=== PATIENT | male | born 1970 | race African-American/Black ===

== ENCOUNTER 2017-05-23 06:01 | Emergency (ER) | payer OTHER ==
[2017-05-23 06:22] VITALS: BMI 35.5
[2017-05-23] MEDS ORDERED: morphine CARPU-JECT 4 MG/1 ML DISP.SYRIN IVPUSH ONE (06:30)
[2017-05-23] MEDS ORDERED: morphine CARPU-JECT 2 MG/1 ML DISP.SYRIN IM ONE (06:33)
--- NOTE | 2017-05-23 06:34 | PDOC ---
History of Present Illness - General History Source: Patient Exam Limitations: No Limitations - History of Present Illness Initial Comments: 05/23/17 06:48 The patient is a 46 year old male, with significant past medical history of back surgery (2009) and diabetes, who presents to the emergency room complaining of 1 day of lower back pain. The patient states that the pain started yesterday when he awkwardly twisted to get in his car and heard a crack. The lower back pain is in the same area where he had a back surgery in 2009. It is 10/10 in severity and started to radiate to the medial aspect of the right thigh. He is ambulatory but states that the pain is making it very difficult to walk. Denies heavy lifting, recent trauma, or injuries. Denies fever, chills, nausea, vomiting. Allergies: none reported PCP: Dr. Reich <Geetha Quiles - Last Filed: 05/23/17 06:49> <Suma Bhagat - Last Filed: 05/23/17 06:52> - General Chief Complaint: Back Pain Stated Complaint: BACK PAIN Time Seen by Provider: 05/23/17 06:27 Past History <Geetha Quiles - Last Filed: 05/23/17 06:49> - Past Medical History Diabetes: Yes - Psycho/Social/Smoking Cessation Hx Anxiety: No Suicidal Ideation: No Smoking Status: Yes Smoking History: Never smoked Have you smoked in the past 12 months: No Number of Cigarettes Smoked Daily: 10 Information on smoking cessation initiated: No Hx Alcohol Use: No Drug/Substance Use Hx: No <Suma Bhagat - Last Filed: 05/23/17 06:52> - Past Medical History Allergies/Adverse Reactions: Allergies Allergy/AdvReac Type Severity Reaction Status Date / Time No Known Allergies Allergy Verified 05/23/17 06:14 Home Medications: Ambulatory Orders Metformin HCl [Glucophage -] 500 mg PO BID #60 tablet 01/20/16 Review of Systems - Review of Systems Able to Perform ROS?: Yes Comments:: 05/23/17 06:48 GENERAL/CONSTITUTIONAL: No fever or chills. No weakness. HEAD, EYES, EARS, NOSE AND THROAT: No change in vision. No ear pain or discharge. No sore throat. CARDIOVASCULAR: No chest pain or shortness of breath. RESPIRATORY: No cough, wheezing, or hemoptysis. GASTROINTESTINAL: No nausea, vomiting, diarrhea or constipation. GENITOURINARY: No dysuria, frequency, or change in urination. MUSCULOSKELETAL: +lower back pain x1 day that radiates to the medial aspect of the right thigh. No joint or muscle swelling or pain. No neck pain. SKIN: No rash NEUROLOGIC: No headache, vertigo, loss of consciousness, or change in strength/ sensation. ENDOCRINE: No increased thirst. No abnormal weight change. HEMATOLOGIC/LYMPHATIC: No anemia, easy bleeding, or history of blood clots. ALLERGIC/IMMUNOLOGIC: No hives or skin allergy. <Geetha Quiles - Last Filed: 05/23/17 06:49> *Physical Exam - Vital Signs Last Vital Signs Temp Pulse Resp BP Pulse Ox 98.3 F 86 20 173/89 100 05/23/17 06:14 05/23/17 06:14 05/23/17 06:14 05/23/17 06:14 05/23/17 06:14 - Physical Exam Comments: 05/23/17 06:48 GENERAL: Awake, alert, and fully oriented, in no acute distress HEAD: No signs of trauma EYES: PERRLA, EOMI, sclera anicteric, conjunctiva clear ENT: Auricles normal inspection, hearing grossly normal, nares patent, oropharynx clear without exudates. Moist mucosa NECK: Normal ROM, supple, no lymphadenopathy, JVD, or masses LUNGS: Breath sounds equal, clear to auscultation bilaterally. No wheezes, and no crackles HEART: Regular rate and rhythm, normal S1 and S2, no murmurs, rubs or gallops ABDOMEN: Soft, nontender, normoactive bowel sounds. No guarding, no rebound. No masses BACK: Muscle spasm around the right lateral T8 - T12. He also has midline tenderness of the lumbar spine. The patient is in too much pain to lay flat and do a full exam at this time. EXTREMITIES: Normal range of motion, no edema. No clubbing or cyanosis. No cords, erythema, or tenderness NEUROLOGICAL: Cranial nerves II through XII grossly intact. Normal speech, normal gait SKIN: Warm, Dry, normal turgor, no rashes or lesions noted. <Geetha Quiles - Last Filed: 05/23/17 06:49> - Vital Signs Last Vital Signs Temp Pulse Resp BP Pulse Ox 98.3 F 86 20 173/89 100 05/23/17 06:14 05/23/17 06:14 05/23/17 06:14 05/23/17 06:14 05/23/17 06:14 <Suma Bhagat - Last Filed: 05/23/17 06:52> ED Treatment Course - Medications Given in the ED: ED Medications Discontinued Medications Generic Name Dose Route Start Last Admin Trade Name Catalina PRN Reason Stop Dose Admin Morphine Sulfate 4 mg 05/23/17 06:30 05/23/17 06:43 Morphine Injection - IVPUSH 05/23/17 06:31 Not Given ONCE ONE Morphine Sulfate 4 mg 05/23/17 06:33 05/23/17 06:43 Morphine Injection - IM 05/23/17 06:34 4 mg ONCE ONE Administration <Geetha Quiles - Last Filed: 05/23/17 06:49> - RADIOLOGY Radiology Studies Ordered: Category Date Time Status LUMBAR SPINE CT W/O CONTRAST [CT] Stat CT Scan 05/23/17 06:30 Ordered <Suma Bhagat - Last Filed: 05/23/17 06:52> Medical Decision Making - Medical Decision Making 05/23/17 06:50 Pt comes with sudden onset lumbar pain radiating to his right medial thigh. Pt had lumbar surg 8 years ago. Yesterday he was getting into his car when he had the sudden pain. Pt will be given 4mg IM morphine and he will receive a CT scan of his lumbar spine. He will be signed out to the day ER doctor. <Suma Bhagat - Last Filed: 05/23/17 06:52> *DC/Admit/Observation/Transfer - Attestations Scribe Attestion: 05/23/17 06:48 Documentation prepared by YAHIR Dunlap, acting as director of medical education for Suma Bhagat MD/. <Geetha Quiles - Last Filed: 05/23/17 06:49> <Suma Bhagat - Last Filed: 05/23/17 06:52> - Referrals Referrals: Sami Reich MD [Primary Care Provider] -
[2017-05-23] MEDS ORDERED: METHOCARBAMOL 500 MG TABLET PO ONE (09:40)
--- NOTE | 2017-05-23 09:40 | PDOC ---
*Physical Exam - Vital Signs Last Vital Signs Temp Pulse Resp BP Pulse Ox 98.3 F 60 17 142/81 98 05/23/17 06:14 05/23/17 07:45 05/23/17 07:45 05/23/17 07:45 05/23/17 07:45 ED Treatment Course - Medications Given in the ED: ED Medications Discontinued Medications Generic Name Dose Route Start Last Admin Trade Name Catalina PRN Reason Stop Dose Admin Morphine Sulfate 4 mg 05/23/17 06:30 05/23/17 06:43 Morphine Injection - IVPUSH 05/23/17 06:31 Not Given ONCE ONE Morphine Sulfate 4 mg 05/23/17 06:33 05/23/17 06:43 Morphine Injection - IM 05/23/17 06:34 4 mg ONCE ONE Administration Medical Decision Making - Medical Decision Making 05/23/17 09:40 Patient reassessed. He was endorsed to me by Dr. Bhagat at shift change this morning. He presented with R low back pain after twisting his torso, feeling a cracking sensation. No neuro deficits on exam. He has history of back surgery in the past. He had a CT L-spine, no acute findings on review. He is still having pain, but it is worse with movement, which would suggest muscular pain. 05/23/17 12:10 Patient reassessed, he is continuing to have pain, although it is better than before. I will give percocet and motrin and reassess. 05/23/17 14:57 Patient states he continues to have pain. He is having difficulty ambulating. However, when I offered admission for further pain management and possibly MRI of his back, he initially agreed to stay, then stated later that he did not want to stay, would rather treat it at home. I counseled him that he can return at any time. 05/23/17 16:46 Inadvertently discharged without follow-up information. I contacted patient and gave him Dr. Guadarrama's information for f/u. *DC/Admit/Observation/Transfer Diagnosis at time of Disposition: Low back pain Qualifiers: Chronicity: acute Back pain laterality: right Sciatica presence: with sciatica Sciatica laterality: sciatica of right side Qualified Code(s): M54.41 - Lumbago with sciatica, right side - Discharge Dispostion Disposition: HOME Condition at time of disposition: Stable Admit: No - Prescriptions Prescriptions: Ibuprofen [Motrin -] 600 mg PO TID #21 tablet Oxycodone HCl/Acetaminophen [Percocet 5-325 mg Tablet] 1 - 2 tab PO Q6H PRN #20 tab MDD 8 tabs PRN Reason: Severe Pain Methocarbamol [Robaxin -] 1,000 mg PO BID PRN #20 tablet PRN Reason: Muscle Spasms - Referrals Referrals: Sami Reich MD [Primary Care Provider] - - Patient Instructions Printed Discharge Instructions: Low Back Pain - Post Discharge Activity Work/School Note: Back to Work
[2017-05-23] MEDS ORDERED: METHOCARBAMOL 500 MG TABLET ONE (09:42)
[2017-05-23] MEDS ORDERED: OXYCODONE/APAP 5/325MG COMBO TABLET PO ONE (12:10)
[2017-05-23] MEDS ORDERED: IBUPROFEN 600 MG TABLET (FP) PO ONE ×2 (12:10→12:20)
[2017-05-23] MEDS ORDERED: OXYCODONE/APAP 5/325MG COMBO TABLET ONE (12:20)
[2017-05-23 15:10] VITALS: BP 140/74; PULSE 71; TEMP 98.1
== END 2017-05-23 14:50 | disposition home or self-care (01) ==
LOC: JER 06:01
PROC: 3E0233Z Introduction of Anti-inflammatory into Muscle, Percutaneous Approach (ICD-10-PCS; principal; 2017-05-23)
DX: M54.41 Lumbago with sciatica, right side (principal); M62.830 Muscle spasm of back; E11.9 Type 2 diabetes mellitus without complications; Z79.84 Long term (current) use of oral hypoglycemic drugs
CPT/HCPCS: 72131-TC; 96372; 99283-25

== ENCOUNTER 2017-10-03 09:57 | Day surgery (SDC) | payer OTHER ==
[2017-09-30 10:19] VITALS: BMI 33.5
[~2017-10-03 09:57] MED LIST: GABAPENTIN 300 MG CAPSULE (FP) PO ONE; oxyCODONE HCL 10 MG SUSTAINED ACTING TABLET PO ONE
[2017-10-03] MEDS ORDERED: methylPREDNISolone ACET (DEPO) 40 MG/1 ML VIAL ONE (11:51)
[2017-10-03] MEDS ORDERED: BUPIVACAINE HCL/PF 2.5 MG/ML - 30 ML VIAL IJ ONE (11:51)
[2017-10-03] MEDS ORDERED: LIDOCAINE 1%/EPI 1:100000 (20 ML MULTI DOSE VIAL) ONE (11:51)
[2017-10-03] MEDS ORDERED: THROMBIN (BOVINE) 5,000 UNIT VIAL TP ONE (11:51)
[2017-10-03] MEDS ORDERED: DEXAMETHASONE SOD PHOSPHATE/PF 10 MG/ML SDV ONE (12:13)
[2017-10-03] MEDS ORDERED: MIDAZOLAM HCL 2 MG/2 ML SINGLE DOSE VIAL ONE (12:13)
[2017-10-03] MEDS ORDERED: BUPIVACAINE HCL/PF (5 MG/ML) 30 ML VIAL IJ ONE (12:13)
--- NOTE | 2017-10-03 12:21 | HP ---
History & Physical Update - History History: No Change - Physical Physical: No Change - Assessment Assessment: No Change - Plan Plan: No Change
[2017-10-03] MEDS ORDERED: ceFAZolin SODIUM 1 GM VIAL ONE (12:44)
[2017-10-03] MEDS ORDERED: LIDOCAINE 1%/EPI 1:100000 (50 ML MULTI DOSE VIAL) INF ONE (13:02)
[2017-10-03] MEDS ORDERED: ONDANSETRON 4 MG/2 ML VIAL ONE (13:51)
--- NOTE | 2017-10-03 14:41 | OP ---
Operative Note - Note: Operative Date: 10/03/17 Pre-Operative Diagnosis: lumbar stenosis L2-L4 with disc herniation Operation: lumbar laminectomy of L2-L4 with microdiscectomy Surgeon: Dillon Feliciano Van Cdl Driver: Nemo Perez Anesthesiologist/PLANT ENGINEERING MANAGER: Nakia Santizo Anesthesia: Spinal Specimens Removed: disc L2-L3 Estimated Blood Loss (mls): 30 Fluid Volume Replaced (mls): 500 Operative Report Dictated: Yes
--- NOTE | 2017-10-03 14:42 | SURG ---
Surgery Adult Remedial Education Instructor Note Adult Remedial Education Instructor: Nemo Perez PA-C Date of Service: 10/03/17 Diagnosis: spinal stenosis, disc herniation Procedure: laminectomy of L2-L4 with microdisectomy I was present for the entirety of the operative procedure. For further detail, please refer to operative report. Visit type - Case Type Case Type: Scheduled Admission - Emergency Emergency Visit: No - New patient This patient is new to me today: Yes Date on this admission: 10/03/17
[2017-10-03 17:16] VITALS: TEMP 98.2
[2017-10-03 17:18] VITALS: BP 124/65; PULSE 55
--- NOTE | 2017-10-03 23:50 | OP ---
DATE OF OPERATION: 10/03/2017 PREOPERATIVE DIAGNOSIS: Spinal stenosis at L2-3, L3-4. POSTOPERATIVE DIAGNOSIS: Spinal stenosis at L2-3, L3-4. PROCEDURE PERFORMED: Laminectomy, L2-3, L3-4. SURGEON: Dillon Feliciaon M.D. CHEMIST PHARMACEUTICAL: Leandra Izquierdo ESTIMATED BLOOD LOSS: 50 mL INTRAVENOUS FLUIDS: Per anesthesia. ANESTHESIA: Spinal. COMPLICATIONS: There were none. DISPOSITION: Patient brought to the PACU in stable condition. INDICATION FOR SURGERY: The patient is a 46-year-old gent who has been suffering from significant pain from his back down his legs. X-rays and MRI were completed, which noted he has spinal stenosis at L2-3 and L3-4. He had gone through an exhaustive course of treatment for this which included medications, physical therapy, as well as injections. Unfortunately, the pain continued to persist in spite of all this. At this point, risks, benefits, and alternatives were discussed and the patient consented to surgery. OPERATIVE NOTE: Patient is brought to the operating room by the anesthesia staff. After appropriate patient identification is performed, spinal anesthesia was given. The patient was placed prone onto the OR table with all areas of bony prominences well padded at this time. Two needles were placed into his back to ant off the L2-L4 segments, and x-ray is taken to confirm this is correct. [place] were removed, and 10 mL of lidocaine with epinephrine was injected into his back at this time. His back was prepped and draped in a sterile manner. At this point timeout was completed. An incision was made from the top of L2 down to the bottom of L4. Dissection was carried down to the fascia. Fascia was then split open at this time, and appropriate retractors were then placed in. Then a spinal needle was placed onto the L2 lamina to ant off the L2-3 level. An x-ray was taken to confirm this was correct. The needle was removed, and the microscope was brought in. At this point, the interspinous ligament at L2-3 and L3-4 was removed. The spinous process of L3 was removed. A bur was used to remove the lamina of L3. The segment identified, it was removed. A complete decompression was performed such that by the end of the procedure the L3-L4 nerve roots appear to be well decompressed. The nerve root was mobilized medially and a disc herniation was noted. It was removed at this time. All bleeding was well controlled. Steroids were placed over the nerve root, Floseal was placed over that. The fascia was closed with a number 1 Vicryl suture. The subcutaneous tissue was closed with 2-0 Vicryl suture. Skin was closed with 3-0 Monocryl suture. Dermabond was applied. Steri-Strips were applied. Sterile dressing was applied. Patient was placed supine on OR bed, and brought to the PACU in stable condition. Prabha LERNER/[id number] MTDD
--- NOTE | 2017-10-05 15:21 | PATH ---
Surgical Pathology Report Patient Name: HARSHA KERR [facility]. Rec. #: [id number] /Age/Gender: 1970 (Age: 46) / M Account: [id number] Location: [facility] Taken: 10/03/2017 Received: 10/03/2017 Reported: 10/05/2017 Physicians: Dillon Feliciano M.D. Specimen(s) Received L 2/3 DISC Clinical History Preoperative diagnosis: Spinal stenosis Final Diagnosis L2-3 DISC, LAMINECTOMY: INTERVERTEBRAL DISC TISSUE AND SCANT FIBROADIPOSE TISSUE. Electronically Signed Barbi Santos M.D. Gross Description Received in formalin labeled "L2-3 disc," is a 1.2 x 0.7 x 0.2 cm aggregate of arreola fragments of fibrocartilaginous tissue. The specimen is entirely submitted in one cassette. 10/04/201710/04/2017
== END 2017-10-03 17:40 | disposition home or self-care (01) ==
LOC: FASU 09:57
PROVIDERS: ATTEND Orthopaedic Surgery Orthopaedic Surgery of the Spine
PROC: 01NB0ZZ Release Lumbar Nerve, Open Approach (ICD-10-PCS; principal; 2017-10-03 11:45)
DX: M48.061 Spinal stenosis, lumbar region without neurogenic claudication (principal)
CPT/HCPCS: 88304-TC; 94760

== ENCOUNTER 2018-09-08 18:26 | Emergency (ER) | payer OTHER ==
[2018-09-08 18:41] VITALS: BP 140/97; PULSE 66; TEMP 99; BMI 35.2
--- NOTE | 2018-09-08 19:21 | PDOC ---
History of Present Illness - History of Present Illness Initial Comments: Patient is a 47-year-old male, history of [id number] diabetes currently on metformin (100mg) and gets Lantis injection, who presents to the ED for cough & sore throat. Patient states that yesterday he began sneezing. Today he had a sore throat, states it hurts to talk or swallow, as well as a productive cough (whitish sputum). He also experienced subjective fever and hot flashes. He states that he also has abdominal soreness which he attributes to the coughing. Patients reports that their children are sick and have similar cold-like symptoms including runny nose, cough, and sore throat but they are not as sick as the patient she reports. PCP: Sami Barker Social Hx: Cigarette smoker (3 cigarettes/day) . Works on a construction site. Surgical Hx: lumbar laminectomy (L2-L4) w/ microdiscectomy L2-L3 <Chaparrita Olmos - Last Filed: 09/08/18 21:22> <Kenyetta Mcguire - Last Filed: 09/09/18 01:56> - General Chief Complaint: Sore Throat Stated Complaint: SORE THROAT, COUGH Time Seen by Provider: 09/08/18 19:17 Past History <Chaparrita Olmos - Last Filed: 09/08/18 21:22> - Past Medical History Anemia: No Asthma: No Cancer: No Cardiac Disorders: No CVA: No COPD: No CHF: No Dementia: No Diabetes: Yes (2008) GI Disorders: No Disorders: No HTN: Yes Hypercholesterolemia: No Liver Disease: No Seizures: No Thyroid Disease: No - Surgical History Abdominal Surgery: No Appendectomy: No Cardiac Surgery: No Cholecystectomy: No Lung Surgery: No Neurologic Surgery: No Orthopedic Surgery: Yes (LAMINECTOMY 2011) - Suicide/Smoking/Psychosocial Hx Smoking Status: Yes Smoking History: Current every day smoker Have you smoked in the past 12 months: Yes Number of Cigarettes Smoked Daily: 3 Information on smoking cessation initiated: Yes 'Breaking Loose' booklet given: 09/08/18 Hx Alcohol Use: No Drug/Substance Use Hx: No Substance Use Type: None Hx Substance Use Treatment: No <Kenyetta Mcguire - Last Filed: 09/09/18 01:56> - Past Medical History Allergies/Adverse Reactions: Allergies Allergy/AdvReac Type Severity Reaction Status Date / Time No Known Allergies Allergy Verified 09/08/18 18:27 Home Medications: Ambulatory Orders Metformin HCl [Glucophage] 1,000 mg PO BID 09/30/17 Amlodipine Besylate/Benazepril [Lotrel 2.5-10 mg Capsule] each PO DAILY Aspirin [Aspirin EC] 81 mg PO DAILY 09/08/18 Azithromycin [Zithromax 250mg Tablets -] 250 mg PO UTDICT #6 tab 09/08/18 Hydrocodone Bit/Homatrop Me-Br [Hydrocodone-Homatropine Syrup] 5 ml PO TID PRN # 60 ml MDD 15 ml 09/08/18 Review of Systems - Review of Systems Comments:: GENERAL/CONSTITUTIONAL: +subjective fever, +hot flashes. No weakness. HEAD, EYES, EARS, NOSE AND THROAT: No change in vision. No ear pain or discharge. +sore throat. CARDIOVASCULAR: No chest pain or shortness of breath. RESPIRATORY: +cough with productive whitish sputum, +wheezing, no hemoptysis. GASTROINTESTINAL: No nausea, vomiting, diarrhea or constipation. GENITOURINARY: No dysuria, frequency, or change in urination. MUSCULOSKELETAL: No joint or muscle swelling or pain. No neck or back pain. SKIN: No rash NEUROLOGIC: No headache, vertigo, loss of consciousness, or change in strength/ sensation. ENDOCRINE: No increased thirst. No abnormal weight change. HEMATOLOGIC/LYMPHATIC: No anemia, easy bleeding, or history of blood clots. ALLERGIC/IMMUNOLOGIC: No hives or skin allergy. 09/08/18 19:45 <Chaaprrita Olmos - Last Filed: 09/08/18 21:22> *Physical Exam - Vital Signs Last Vital Signs Temp Pulse Resp BP Pulse Ox 99 F 66 18 140/97 99 09/08/18 18:26 09/08/18 18:26 09/08/18 18:26 09/08/18 18:26 09/08/18 18:26 - Physical Exam Comments: GENERAL: Awake, alert, and fully oriented, in no acute distress HEAD: No signs of trauma EYES: PERRLA, EOMI, sclera anicteric, conjunctiva clear ENT: Auricles normal inspection, hearing grossly normal, TM's normal b/l, nares patent, oropharynx - not edematous, moderately errythematous with small amount of whitish exudate on right side. Moist mucosa NECK: Normal ROM, supple, no lymphadenopathy, JVD, or masses LUNGS: Bilateral expiratory wheezes. HEART: Regular rate and rhythm, normal S1 and S2, no murmurs, rubs or gallops ABDOMEN: Soft, nontender, normoactive bowel sounds. No guarding, no rebound. No masses EXTREMITIES: Normal range of motion, no edema. No clubbing or cyanosis. No cords, erythema, or tenderness NEUROLOGICAL: Cranial nerves II through XII grossly intact. Normal speech, normal gait SKIN: Warm, Dry, normal turgor, no rashes or lesions noted. 09/08/18 21:23 <Chaparrita Olmos - Last Filed: 09/08/18 21:22> - Vital Signs Last Vital Signs Temp Pulse Resp BP Pulse Ox 99 F 66 18 140/97 99 09/08/18 18:26 09/08/18 18:26 09/08/18 18:26 09/08/18 18:26 09/08/18 18:26 <Kenyetta Mcguire - Last Filed: 09/09/18 01:56> ED Treatment Course - Medications Given in the ED: ED Medications Discontinued Medications Generic Name Dose Route Start Last Admin Trade Name Urielq PRN Reason Stop Dose Admin Albuterol/Ipratropium 1 amp 09/08/18 19:36 09/08/18 19:40 Duoneb - NEB 09/08/18 19:37 1 amp ONCE ONE Administration <Chaparrita Olmos - Last Filed: 09/08/18 21:22> Medical Decision Making - Medical Decision Making Documentation has been prepared under my direction and personally reviewed by me in its entirety. I attest that this documented accurately reflects all work, treatment, procedures and medical decision making performed by me. As noted above, this 57-year-old man, history of DM and smoking presents with a few day history of upper respiratory infection symptoms and cough productive of whitish sputum. He describes increased chest congestion today along with subjective fever. As noted, family members all have similar symptoms over the last several days. Exam notable for low-grade fever (99F orally), pharyngeal erythema with tiny exudative patch and bilateral expiratory wheezing. Patient received DuoNeb nebulizer treatment after physical exam. After nebulizer treatment, expiratory wheezing had resolved and air exchange was significantly improved. Patient states that he is breathing much more easily and sensation of chest congestion and has largely resolved. Chest x-ray was performed (PA and lateral views). Preliminary interpretation reveals no evidence of infiltrates, pleural effusions or masses. Clinical presentation most consistent with acute bronchitis. Because patient has a history of smoking, secondary bacterial infection risk is present and patient will be started on antibiotic. Prescription for azithromycin (Z-Javi) will be sent to patient's pharmacy. Patient has been advised to drink plenty of fluids and rest. Documentation for the patient to be home from work until September 12 has been provided to the patient. Patient has for cough suppressant to be used at night when he has severe coughing episodes that prevented him from sleeping. Small ( 60 mL) prescription for hydrocodone/homatropine syrup (to be used 5 mL up to 3 times a day) sent to pharmacy. Patient is been cautioned to avoid any activity requiring full attention while using this medication. Patient should follow-up with his PMD, on September 11. If he has any difficulty breathing/wheezing or high fever prior to seeing his doctor, he should return to the ER <Kenyetta Mcguire - Last Filed: 09/09/18 01:56> *DC/Admit/Observation/Transfer - Attestations Scribe Attestion: 09/08/18 19:47 Documentation prepared by Chaparrita Olmos, acting as medical coding manager for Keneytta Mcguire MD. <Chaparrita Olmos - Last Filed: 09/08/18 21:22> <Kenyetta Mcguire - Last Filed: 09/09/18 01:56> Diagnosis at time of Disposition: Bronchitis - Discharge Dispostion Disposition: HOME Condition at time of disposition: Stable - Prescriptions Prescriptions: Azithromycin [Zithromax 250mg Tablets -] 250 mg PO UTDICT #6 tab Hydrocodone Bit/Homatrop Me-Br [Hydrocodone-Homatropine Syrup] 5 ml PO TID PRN # 60 ml MDD 15 ml PRN Reason: Cough - Referrals Referrals: Sami Reich MD [Primary Care Provider] - 3 days - Patient Instructions Printed Discharge Instructions: DI for Acute Bronchitis Additional Instructions: rest; drink plenty of water Azithromycin(Zpak) ;begin tonight use humidifier in room at night Hydrocodone syrup- 1 tsp as needed for severe cough- this will make you sleepy no work until Tuesday, followup with Dr Reich on Tue, Sep 11 return if you have wheezing/difficulty breathing/ high fever - Post Discharge Activity Forms/Work/School Notes: Back to Work
[2018-09-08] MEDS ORDERED: ALBUTEROL SO4 2.5/IPRATROPIUM 0.5 INH SOL 3 ML VIAL.NEB. NEB ONE ×2 (19:36→19:37)
== END 2018-09-08 21:09 | disposition home or self-care (01) ==
LOC: FER 18:26
PROC: 3E0F7GC Introduction of Other Therapeutic Substance into Respiratory Tract, Via Natural or Artificial Opening (ICD-10-PCS; principal; 2018-09-08)
DX: J40 Bronchitis, not specified as acute or chronic (principal); F17.210 Nicotine dependence, cigarettes, uncomplicated; E11.9 Type 2 diabetes mellitus without complications; I10 Essential (primary) hypertension
CPT/HCPCS: 71046-TC-FY; 87070; 87430; 94640; 99283-25

== ENCOUNTER 2022-09-22 10:01 | Emergency (ER) | payer OTHER ==
[2022-09-22] MEDS ORDERED: IBUPROFEN 600 MG TABLET (FP) PO ONE ×2 (10:19→10:37)
[2022-09-22 10:20] VITALS: BP 157/96; PULSE 73; RESP 16; TEMP 99.4; BMI 34.1
== END 2022-09-22 12:44 | disposition home or self-care (01) ==
LOC: FER 10:01
DX: M79.645 Pain in left finger(s) (principal)
CPT/HCPCS: 73140-TC-LT-FY; 99283-25